=== PATIENT | male | born 1990 | race Caucasian/White ===

== ENCOUNTER → 2016-11-29 | Outpatient (CLI) | payer MEDICARE, OTHER ==
--- NOTE | 2016-11-29 14:03 | US ---
EXAMINATION TYPE: US liver DATE OF EXAM: 11/29/2016 COMPARISON: Complete abdominal ultrasound June 11, 2013 CLINICAL HISTORY: K75.81 Nonalcoholic steatophepatitis (BASHIR). EXAM MEASUREMENTS: Liver Length: 16.9 cm Gallbladder Wall: Surgically absent cm CBD: 0.5 cm Right Kidney: 10.7 x 4.9 x 4.9 cm Exam technically difficult due to body habitus. Pancreas: visualized portions wnl Liver: difficult to penetrate Gallbladder: Surgically absent CBD: wnl Right Kidney: No hydronephrosis or masses seen Visualized liver remains heterogeneously hyperechoic in appearance. Evaluation for focal masses is gupta boptimal due to the heterogeneity. IMPRESSION: No significant change from prior study, diffuse fatty infiltration of liver is once again felt present.
== END | disposition home or self-care (01) ==
LOC: RADUSWWP 12:13
PROVIDERS: ATTEND Internal Medicine
DX: K75.81 Nonalcoholic steatohepatitis (NASH) (principal)
CPT/HCPCS: 76705

== ENCOUNTER → 2016-11-29 | Outpatient (CLI) | payer MEDICARE, OTHER ==
[2016-11-29 14:01] LABS: Cholesterol 175 mg/dL (<200); HDL Cholesterol 31 mg/dL (40-60)
== END ==
LOC: LABWHC1 13:17
PROVIDERS: ATTEND Internal Medicine
DX: K75.81 Nonalcoholic steatohepatitis (NASH) (principal)
CPT/HCPCS: 36415; 80061

== ENCOUNTER 2018-07-16 15:37 | Emergency (ER) | payer MEDICARE, OTHER ==
[2018-07-16 15:43] VITALS: BP 107/81; PULSE 100; RESP 18; TEMP 98.3
[2018-07-16] MEDS ORDERED: SULFAMETHOX-TMP 800-160MG 1 EACH TAB PO STA (16:47)
[2018-07-16] MEDS ORDERED: IBUPROFEN 800 MG TAB PO STA (16:47)
[2018-07-16] MEDS ORDERED: SULFAMETH-TMP DS STARTER PACK 2 TAB BTL PO STA (16:47)
--- NOTE | 2018-07-16 16:48 | ED ---
Skin/Abscess/FB HPI - General Chief complaint: Skin/Abscess/Foreign Body Stated complaint: Finger infection Time Seen by Provider: 07/16/18 16:29 Source: patient, family, RN notes reviewed, old records reviewed Mode of arrival: ambulatory Limitations: no limitations - History of Present Illness Initial comments: This is a 27-year-old male the ER for evaluation. Patient has likely finger fracture. Patient symptoms again for about 5 days maybe a week. Patient is mildly poor strain history is also to be obtained from patient's parent. Patient has swelling and edema and purulent drainage of index finger. He's been doing compresses and soaks significant improvement. Patient coming in today consisted symptoms have just not resolved. No prior history of similar infection, patient does bite his fingers MD complaint: abscess/boil (Pre-abscess or boil) -: week(s) Tetanus Up to Date: yes Location: R hand Severity scale (1-10): 6 Quality: aching Consistency: constant Improves with: medication Worsens with: movement Context: none Associated symptoms: denies other symptoms - Related Data Home Medications Medication Instructions Recorded Confirmed Divalproex ER [Depakote ER] 500 mg PO BID 08/27/15 07/16/18 cloZAPine [Clozaril] 200 mg PO HS 08/27/15 07/16/18 Allopurinol [Zyloprim] 300 mg PO DAILY 07/16/18 07/16/18 Gabapentin [Neurontin] 100 mg PO TID 07/16/18 07/16/18 Pantoprazole Sodium [Protonix] 40 mg PO DAILY 07/16/18 07/16/18 Probenecid 500 mg PO BID 07/16/18 07/16/18 Previous Rx's Medication Instructions Recorded Naproxen [Naprosyn] 500 mg PO Q12HR PRN #30 tab 07/16/18 Sulfamethox-Tmp 800-160Mg [Bactrim 2 tab PO BID #40 tab 07/16/18 DS 800-160 mg] Allergies Allergy/AdvReac Type Severity Reaction Status Date / Time No Known Allergies Allergy Verified 07/16/18 17:29 Review of Systems ROS Statement: Those systems with pertinent positive or pertinent negative responses have been documented in the HPI. ROS Other: All systems not noted in ROS Statement are negative. Past Medical History Past Medical History: Asthma, GERD/Reflux, Seizure Disorder Additional Past Medical History / Comment(s): LAST SEIZURE AT 11YRS OLD, "PT IS SPECIAL NEEDS-MENTAL RETARDATION -MOM STATES HE IS LIKE A 5 YEAR OLD" UTI History of Any Multi-Drug Resistant Organisms: None Reported Past Surgical History: Cholecystectomy Additional Past Surgical History / Comment(s): INGROWN TOE NAIL SURGERY UNDER ANESTHESIA. Past Anesthesia/Blood Transfusion Reactions: Family History of Problems w/ Anesthesia Additional Past Anesthesia/Blood Transfusion Reaction / Comment(s): MOTHER =PONV Past Psychological History: Bipolar, Depression Smoking Status: Never smoker Past Alcohol Use History: None Reported Past Drug Use History: None Reported - Past Family History Father Family Medical History: Cancer Additional Family Medical History / Comment(s): PROSTATE CANCER General Exam - General Exam Comments Initial Comments: She does have cellulitis of right index finger. No drainable abscess identified currently Limitations: no limitations General appearance: alert, in no apparent distress Head exam: Present: atraumatic, normocephalic, normal inspection Eye exam: Present: normal appearance, PERRL, EOMI. Absent: scleral icterus, conjunctival injection, periorbital swelling ENT exam: Present: normal exam, mucous membranes moist Neck exam: Present: normal inspection. Absent: tenderness, meningismus, lymphadenopathy Respiratory exam: Present: normal lung sounds bilaterally. Absent: respiratory distress, wheezes, rales, rhonchi, stridor Cardiovascular Exam: Present: regular rate, normal rhythm, normal heart sounds. Absent: systolic murmur, diastolic murmur, rubs, gallop, clicks GI/Abdominal exam: Present: soft, normal bowel sounds. Absent: distended, tenderness, guarding, rebound, rigid Extremities exam: Present: normal inspection, full ROM, normal capillary refill. Absent: tenderness, pedal edema, joint swelling, calf tenderness Back exam: Present: normal inspection Neurological exam: Present: alert, oriented X3, CN II-XII intact Psychiatric exam: Present: normal affect, normal mood Skin exam: Present: warm, dry, intact, normal color. Absent: rash Course Vital Signs 07/16/18 15:41 Temperature 98.3 F Pulse Rate 100 Respiratory 18 Rate Blood Pressure 107/81 O2 Sat by Pulse 98 Oximetry Medical Decision Making - Medical Decision Making 27 male the ER for evaluation developing paronychia versus drained paronychia with cellulitis. Patient is doing warm compresses warm bath and wash his at home to continue those and patient put on antibiotics, patient will return if abscess formation developed Disposition Clinical Impression: Paronychia of right index finger, Cellulitis of finger of right hand Disposition: HOME SELF-CARE Condition: Good Instructions (If sedation given, give patient instructions): Paronychia (ED), Cellulitis (ED) Prescriptions: Sulfamethox-Tmp 800-160Mg [Bactrim DS 800-160 mg] 2 tab PO BID #40 tab Naproxen [Naprosyn] 500 mg PO Q12HR PRN #30 tab PRN Reason: Pain Is patient prescribed a controlled substance at d/c from ED?: No Referrals: Yayo Busch MD [Primary Care Provider] - 1-2 days
== END 2018-07-16 17:08 | disposition home or self-care (01) ==
LOC: EEVIPCON 15:37 → EC 15:37
DX: L03.011 Cellulitis of right finger (principal); K21.9 Gastro-esophageal reflux disease without esophagitis; G40.909 Epilepsy, unspecified, not intractable, without status epilepticus; F31.9 Bipolar disorder, unspecified; Z79.899 Other long term (current) drug therapy
CPT/HCPCS: 99283

== ENCOUNTER 2018-07-27 08:50 | Day surgery (SDC) | payer MEDICARE, OTHER ==
[2018-07-24 15:36] VITALS: BMI 39.9
[~2018-07-27 08:50] MED LIST: LACTATED RINGERS 1,000 ML IV SCH; LIDOCAINE 1% 20 ML VIAL (10MG/ML) FOR IV START INTRADERMA PRN
[2018-07-27 09:33] VITALS: RESP 16; TEMP 97.2
[2018-07-27] MEDS ORDERED: LIDOCAINE 1% INJ 10MG/ML (20 ML MDV) ONE (11:04)
[2018-07-27] MEDS ORDERED: PROPOFOL 10 MG/ML 20 ML VIAL IV ONE (11:04)
--- NOTE | 2018-07-27 11:15 | P.PCN ---
Date of Procedure: 07/27/18 Procedure(s) Performed: BRIEF HISTORY: Patient is a [id number], pleasant, white male, scheduled for an upper endoscopy as a part of evaluation of atypical chest pain for the last 2 months duration.. He denies any heartburn. No dysphagia or odynophagia. PROCEDURE PERFORMED: Esophagogastroduodenoscopy.With biopsy PREOPERATIVE DIAGNOSIS: Atypical chest pain of 2 months duration. IV sedation per anesthesia. PROCEDURE: After informed consent was obtained, the patient was brought into the endoscopy unit. IV sedation was administered by Anesthesia under continuous monitoring. Initially the Olympus GIF-140 video endoscope was inserted into the mouth. Esophagus intubated without any difficulty. It was gradually advanced into the stomach and duodenum and carefully examined. The bulb and the second part of the duodenum appeared normal. The scope at this time was withdrawn to the stomach, adequately insufflated with air, and upon careful examination, mucosa of the antrum, had mild gastritis and biopsies were done from this area. The body, cardia and the fundus appeared normal. The scope was then withdrawn into the esophagus. The GE junction was located at 43 cm from the incisors. The esophagus appeared normal. There were no erosions or ulcerations seen, multiple biopsies were done from the distal esophagus and the patient tolerated the procedure well. IMPRESSION: 1. Mild antral gastritis. 2. Normal-appearing esophagus with no evidence of esophagitis RECOMMENDATIONS: The findings of this examination were discussed with the patient [as well as his family. He was advised to follow with the biopsy results. He will give be given a prescription for Prilosec 20 mg daily for 8 weeks for possible GERD causing atypical chest pain.
[2018-07-27 11:39] VITALS: BP 125/69; PULSE 99
== END 2018-07-27 11:54 | disposition home or self-care (01) ==
LOC: ORWHC2ENDO 08:50
PROVIDERS: ATTEND Internal Medicine Gastroenterology
DX: K29.50 Unspecified chronic gastritis without bleeding (principal); K21.0 Gastro-esophageal reflux disease with esophagitis; J45.909 Unspecified asthma, uncomplicated; R56.9 Unspecified convulsions; Z79.899 Other long term (current) drug therapy; Z79.1 Long term (current) use of non-steroidal anti-inflammatories (NSAID)
CPT/HCPCS: 88305; 88312; 43239; J2001; J2704

== ENCOUNTER 2020-10-07 11:03 | Day surgery (SDC) | payer MEDICARE, OTHER ==
[2020-10-06 10:02] VITALS: BMI 42.5
[2020-10-07] MEDS: LACTATED RINGERS 1,000 ML IV SCH ×2 (12:35→12:40)
[2020-10-07 12:37] VITALS: TEMP 97.7
[2020-10-07 12:37] LABS: Glucose,Whole Blood 111 mg/dL (75-99)
[2020-10-07] MEDS ORDERED: LIDOCAINE 1% (10MG/ML) FOR IV START INTRADERMA ONE (12:37)
[2020-10-07] MEDS ORDERED: LIDOCAINE 1% INJ 10MG/ML (20 ML MDV) ONE (12:41)
[2020-10-07] MEDS ORDERED: PROPOFOL 10 MG/ML 20 ML VIAL IV ONE (12:41)
[2020-10-07] MEDS ORDERED: MIDAZOLAM 2 MG/2 ML VIAL ONE (12:41)
[2020-10-07] MEDS ORDERED: fentaNYL (PF) 50 MCG/ML 2 ML AMP ONE (12:41)
--- NOTE | 2020-10-07 13:05 | P.PCN ---
Date of Procedure: 10/07/20 Procedure(s) Performed: Brief history: Patient is a pleasant 29-year-old white male scheduled for an elective upper endoscopy as well as colonoscopy as a part of evaluation of GERD and chronic diarrhea for the last several months duration Procedure performed: Esophagogastroduodenoscopy with biopsy Colonoscopy with biopsy Preoperative diagnosis: GERD Chronic diarrhea Anesthesia: [facility] Procedure: After informed consent was obtained from the patient was brought into the endoscopy unit and IV sedation was administered by anesthesia under continuous monitoring. Initially upper endoscopy was done. The Olympus GF 160 video endoscope was inserted inserted into the mouth and esophagus intubated without any difficulty and was gradually advanced into the stomach and duodenum and carefully examined. The bulb and second part of the duodenum appeared normal. Biopsies were done from this area to rule out celiac disease. The scope was then withdrawn into the stomach adequately insufflated with air and upon careful examination the antrum had mild gastritis. Biopsies were done from the antrum. The body, cardia and fundus appeared normal. The scope was then withdrawn into the esophagus. The GE junction was located at 40 cm to the incisors. It appeared regular with no erythema erosions or ulcerations. Rest of the esophagus appeared normal. Patient tolerated the procedure well. At this time the patient continued to remain sedation. Initial digital rectal examination was normal. Olympus CF 160 video colonoscope was then inserted into the rectum and gradually advanced to the cecum without any difficulty. Careful examination was performed as the scope was gradually being withdrawn. The prep was excellent. The cecum, ascending colon, transverse colon, descending colon, sigmoid colon and rectum appeared normal. Random biopsies were done from ascending and descending colon to rule out metastatic/collagenous colitis. Retroflexion was performed in the rectum and no lesions were noted. Patient tolerated the procedure well. Impression: 1. Upper endoscopy revealed mild antral gastritis but no evidence of esophagitis or peptic 2. Colonoscopy revealed small internal hemorrhoids Recommendations: Findings of this examination were discussed with the patient as well as his family. He was advised to follow with the biopsy results. He'll be seen in office in one week.
[2020-10-07 13:14] VITALS: RESP 16
[2020-10-07 13:22] VITALS: BP 112/78; PULSE 119
== END 2020-10-07 13:53 | disposition home or self-care (01) ==
LOC: ORWHC2ENDO 11:03
PROVIDERS: ATTEND Internal Medicine Gastroenterology
DX: K29.50 Unspecified chronic gastritis without bleeding (principal); K52.9 Noninfective gastroenteritis and colitis, unspecified; K64.8 Other hemorrhoids; K21.9 Gastro-esophageal reflux disease without esophagitis; Z79.899 Other long term (current) drug therapy; J45.909 Unspecified asthma, uncomplicated; M10.9 Gout, unspecified; F41.9 Anxiety disorder, unspecified; E66.01 Morbid (severe) obesity due to excess calories; Z68.41 Body mass index [BMI] 40.0-44.9, adult
CPT/HCPCS: 88305; 45380; 43239; J2250; J2001; J3010; J2704

== ENCOUNTER 2022-09-05 21:59 | Inpatient (IN) | payer MEDICARE, OTHER ==
[2022-09-05] MEDS ORDERED: levETIRAcetam IV 500 MG/5 ML VIAL IVP STA (22:16)
--- NOTE | 2022-09-05 22:21 | ED ---
General Adult HPI - General Chief complaint: Seizure Stated complaint: siezure,possible overdose Time Seen by Provider: 09/05/22 22:01 Source: patient, EMS, RN notes reviewed Mode of arrival: EMS Limitations: altered mental status - History of Present Illness Initial comments: Patient is a pleasant 31-year-old male presenting to the emergency department by EMS. Patient has reported seizure activity. EMS did report witnessing to seizures. Patient does have remote history of seizures, none recently. Patient is a poor historian and is not able to drive much history. Sister is present and also a poor historian. Mobile crisis unit is present who is familiar with them and they were doing a check up on the patient in the found him altered. EMS states pupils were pinpoint inattentive to Narcan intranasally which may have improved alertness. Patient denies any drug use. Patient states occasional alcohol use, none today. Patient amiss to feeling fatigued and tired. Patient does admit to having some recent nausea vomiting and diarrhea. patient's mother is guardian and she is currently hospitalized in ICU. Patient has been living in the hotel with his sister. - Related Data Home Medications Medication Instructions Recorded Confirmed Divalproex ER [Depakote ER] 500 mg PO BID 08/27/15 10/07/20 cloZAPine [Clozaril] 200 mg PO HS 08/27/15 10/07/20 Gabapentin [Neurontin] 100 mg PO TID 07/16/18 10/07/20 Pantoprazole Sodium [Protonix] 40 mg PO DAILY 07/16/18 10/07/20 Probenecid 500 mg PO BID 07/16/18 10/07/20 allopurinoL [Zyloprim] 300 mg PO DAILY 07/16/18 10/07/20 Albuterol Inhaler [Ventolin Hfa 1 - 2 puff INHALATION RT-Q6H PRN 07/24/18 10/07/20 Inhaler] Ascorbic Acid [Vitamin C] 500 mg PO DAILY 10/06/20 10/07/20 Cholecalciferol [Vitamin D3 (25 50 mcg PO DAILY 10/06/20 10/07/20 Mcg = 1000 Iu)] Vitamin E 461 unit PO DAILY 10/06/20 10/07/20 Allergies Allergy/AdvReac Type Severity Reaction Status Date / Time dust AdvReac sneezing Uncoded 10/06/20 09:28 sunlight AdvReac sneezing Uncoded 10/06/20 09:28 Review of Systems ROS Statement: Those systems with pertinent positive or pertinent negative responses have been documented in the HPI. ROS Other: All systems not noted in ROS Statement are negative. Constitutional: Denies: fever Eyes: Denies: eye pain ENT: Denies: ear pain Respiratory: Denies: cough Cardiovascular: Denies: chest pain Endocrine: Reports: fatigue Gastrointestinal: Reports: nausea, vomiting, diarrhea Genitourinary: Denies: dysuria Musculoskeletal: Denies: back pain Skin: Denies: rash Neurological: Reports: as per HPI Past Medical History Past Medical History: Asthma, Chest Pain / Angina, GERD/Reflux, Seizure Disorder Additional Past Medical History / Comment(s): LAST SEIZURE AT 11YRS OLD, "PT IS SPECIAL NEEDS-MENTAL RETARDATION -MOM STATES HE IS LIKE A 5 YEAR OLD" , SPEAKS IN SENTENCES, SPEECH CLEAR, FORGETFUL.,", BORDERLINE DIABETIC" ., MOM STATES HE IS HAVING STOMACH AND CHEST PAINS, DIARRHEA WITH BLOOD IN STOOL. History of Any Multi-Drug Resistant Organisms: MRSA Date of last positivie culture/infection: 02/08/19 MDRO Source:: FINGER Past Surgical History: Cholecystectomy Additional Past Surgical History / Comment(s): INGROWN TOE NAIL SURGERY UNDER ANESTHESIA. Past Anesthesia/Blood Transfusion Reactions: Family History of Problems w/ Anesthesia, Postoperative Nausea & Vomiting (PONV) Additional Past Anesthesia/Blood Transfusion Reaction / Comment(s): MOTHER =PONV Past Psychological History: Bipolar, Depression Smoking Status: Never smoker Past Alcohol Use History: None Reported Past Drug Use History: None Reported - Past Family History Father Family Medical History: Cancer Additional Family Medical History / Comment(s): PROSTATE CANCER 01/08 General Exam Limitations: altered mental status General appearance: alert, in no apparent distress Head exam: Present: atraumatic Eye exam: Present: normal appearance, PERRL, EOMI ENT exam: Present: other (Tongue abrasions) Neck exam: Present: normal inspection. Absent: tenderness Respiratory exam: Present: normal lung sounds bilaterally Cardiovascular Exam: Present: regular rate, normal rhythm GI/Abdominal exam: Present: soft. Absent: tenderness Extremities exam: Present: normal inspection, full ROM. Absent: tenderness Neurological exam: Present: alert, altered. Absent: motor sensory deficit Expanded Neurological exam: Present: protecting the airway Patient oriented to: Present: person. Absent: place, time Cranial nerves: EOM's Intact: Normal Motor strength exam: RUE: 5, LUE: 5, RLE: 5, LLE: 5 Eye Response: (4) open spontaneously Motor Response: (6) obeys commands Verbal Response: (4) confused conversation Psychiatric exam: Present: normal affect, normal mood Skin exam: Present: normal color Course Vital Signs 09/05/22 09/05/22 09/05/22 22:06 22:15 23:46 Temperature 98.4 F 98.4 F Pulse Rate 112 H 99 95 Respiratory 20 20 18 Rate Blood Pressure 118/77 118/77 140/81 O2 Sat by Pulse 96 97 98 Oximetry EKG Findings - EKG Results: EKG: interpreted by MERRILL, sinus rhythm, normal axis, normal QRS, normal ST/T Medical Decision Making - Medical Decision Making Was pt. sent in by a medical professional or institution (, [facility], CVOR NURSE, urgent care, hospital, or long-term...) When possible be specific @ -Patient was brought in by mobile crisis unit. They're willing to help with patient. Their phone number is [phone] Did you speak to anyone other than the patient for history (EMS, parent, family, police, friend...)? What history was obtained from this source @ -Sister is present and helps provide history of seizure Did you review nursing and triage notes (agree or disagree)? Why? @ -I reviewed and agree with nursing and triage notes Were old charts reviewed (outside hosp., previous admission, EMS record, old EKG, old radiological studies, urgent care reports/EKG's, long-term records)? Report findings @ -No old charts were reviewed Differential Diagnosis (chest pain, altered mental status, abdominal pain women, abdominal pain men, vaginal bleeding, weakness, fever, dyspnea, syncope, headache, dizziness, GI bleed, back pain, seizure, CVA, palpatations, mental health)? @ -Differential Seizure: Recurrent seizure disorder, febrile seizure, alcohol withdrawal, stimulants, meningitis, encephalitis, intercranial hemorrhage, intracranial tumor, stroke, eclampsia, thyrotoxicosis, hypocalcemia, hyponatremia, hypernatremia, hypomagnesemia, psychogenic, this is not meant to be an all-inclusive list. EKG interpreted by (3pts min.). @ -As above X-rays interpreted by me (1pt min.). @ -None done CT interpreted by me (1pt min.). @ -Report reviewed U/S interpreted by me (1pt. min.). @ -None done What testing was considered but not performed or refused? (CT, X-rays, U/S, labs)? Why? @ -None What meds were considered but not given or refused? Why? @ -None Did you discuss the management of the patient with other professionals (professionals i.e. , PA, CVOR NURSE, lab, RT, psych nurse, social work therapist, hand woodworking sander, teacher, human resources officer, casework manager)? Give summary @ -Case was discussed with Dr. Camacho, who will admit covering hospital call Was smoking cessation discussed for >3mins.? @ -No Was critical care preformed (if so, how long)? @ -No Were there social determinants of health that impacted care today? How? (Homelessness, low income, unemployed, alcoholism, drug addiction, transportation, low edu. Level, literacy, decrease access to med. care, penitentiary, rehab)? @ -No Was there de-escalation of care discussed even if they declined (Discuss DNR or withdrawal of care, Hospice)? DNR status @ -No What co-morbidities impacted this encounter? (DM, HTN, Smoking, COPD, CAD, Cancer, CVA, ARF, Chemo, Hep., AIDS, mental health diagnosis, sleep apnea, morbid obesity)? @ -None Was patient admitted / discharged? Hospital course, mention meds given and r oute, prescriptions, significant lab abnormalities, going to OR and other pertinent info. @ -Patient reevaluated. Patient still has nausea. Patient and family updated on results and plan. Undiagnosed new problem with uncertain prognosis? @ -No Drug Therapy requiring intensive monitoring for toxicity (Heparin, Nitro, Insu esther, Cardizem)? @ -No Were any procedures done? @ -No Diagnosis/symptom? @ -Recurrent seizures, nausea and vomiting Acute, or Chronic, or Acute on Chronic? @ -Acute, acute Uncomplicated (without systemic symptoms) or Complicated (systemic symptoms)? @ -default Side effects of treatment? @ -No Exacerbation, Progression, or Severe Exacerbation? @ -No Poses a threat to life or bodily function? How? (Chest pain, USA, CT, pneumonia, PE, COPD, DKA, ARF, appy, cholecystitis, CVA, Diverticulitis, Homicidal, Suicidal, threat to staff... and all critical care pts) @ -No - Lab Data Result diagrams: 09/05/22 22:13 09/05/22 22:13 Lab Results 09/05/22 09/05/22 09/05/22 Range/Units 22:13 22:13 22:17 WBC 15.9 H (3.8-10.6) k/uL RBC 5.59 (4.30-5.90) m/uL Hgb 16.1 (13.0-17.5) gm/dL Hct 49.2 (39.0-53.0) % MCV 88.0 (80.0-100.0) fL MCH 28.8 (25.0-35.0) pg MCHC 32.7 (31.0-37.0) g/dL RDW 13.2 (11.5-15.5) % Plt Count 179 (150-450) k/uL MPV 13.9 Neutrophils % 77 % Lymphocytes % 17 % Monocytes % 4 % Eosinophils % 0 % Basophils % 0 % Neutrophils # 12.2 H (1.3-7.7) k/uL Lymphocytes # 2.8 (1.0-4.8) k/uL Monocytes # 0.7 (0-1.0) k/uL Eosinophils # 0.0 (0-0.7) k/uL Basophils # 0.0 (0-0.2) k/uL Manual Slide Review Performed Large Platelets Present Sodium 140 (137-145) mmol/L Potassium 3.7 (3.5-5.1) mmol/L Chloride 95 L (98-107) mmol/L Carbon Dioxide 8 L* (22-30) mmol/L Anion Gap 37 mmol/L BUN 17 (9-20) mg/dL Creatinine 1.55 H (0.66-1.25) mg/dL Est GFR (CKD-EPI)AfAm 68 (>60 ml/min/1.73 sqM) Est GFR (CKD-EPI)NonAf 59 (>60 ml/min/1.73 sqM) Glucose 104 H (74-99) mg/dL Calcium 10.0 (8.4-10.2) mg/dL Magnesium 2.8 H (1.6-2.3) mg/dL Total Bilirubin 1.0 (0.2-1.3) mg/dL AST 69 H (17-59) U/L ALT 77 H (4-49) U/L Alkaline Phosphatase 99 (38-126) U/L Total Protein 8.6 H (6.3-8.2) g/dL Albumin 5.6 H (3.5-5.0) g/dL Urine Color Yellow Urine Appearance Cloudy (Clear) Urine pH 6.0 (5.0-8.0) Ur Specific [place] 1.025 (1.001-1.035) Urine Protein 2+ H (Negative) Urine Glucose (UA) Negative (Negative) Urine Ketones 4+ H (Negative) Urine Blood Small H (Negative) Urine Nitrite Negative (Negative) Urine Bilirubin 1+ H (Negative) Urine Urobilinogen 2.0 (<2.0) mg/dL Ur Leukocyte Esterase Negative (Negative) Urine RBC 51 H (0-5) /hpf Urine WBC 2 (0-5) /hpf Ur Squamous Epith Cells 1 (0-4) /hpf Urine Bacteria Rare H (None) /hpf Hyaline Casts 15 H (0-2) /lpf Urine Mucus Few H (None) /hpf Urine Opiates Screen Not Detected (NotDetected) Ur Oxycodone Screen Not Detected (NotDetected) Urine Methadone Screen Not Detected (NotDetected) Ur Propoxyphene Screen Not Detected (NotDetected) Ur Barbiturates Screen Not Detected (NotDetected) Valproic Acid <10.0 ug/mL U Tricyclic Antidepress Not Detected (NotDetected) Ur Phencyclidine Scrn Not Detected (NotDetected) Ur Amphetamines Screen Not Detected (NotDetected) U Methamphetamines Scrn Not Detected (NotDetected) U Benzodiazepines Scrn Not Detected (NotDetected) Urine Cocaine Screen Not Detected (NotDetected) U Marijuana (THC) Screen Not Detected (NotDetected) Serum Alcohol <10 mg/dL Disposition Clinical Impression: Generalized seizure, Vomiting, Diarrhea Disposition: ADMITTED IP TO THIS [facility] Instructions (If sedation given, give patient instructions): Seizure/Epilepsy Discharge Instructions & Follow-Up Is patient prescribed a controlled substance at d/c from ED?: No Referrals: None,Stated [REFERRING] - 1-2 days Time of Disposition: 00:19
[2022-09-05 22:33] LABS: Basophils % (A) 0 %; Eosinophils % (A) 0 %; HCT 49.2 % (39.0-53.0); HGB 16.1 gm/dL (13.0-17.5); Lymphocytes # (A) 2.8 k/uL (1.0-4.8); Lymphocytes % (A) 17 %; MCH 28.8 pg (25.0-35.0); MCHC 32.7 g/dL (31.0-37.0); Mean Platelet Volume 13.9; Monocytes # (A) 0.7 k/uL (0-1.0); Monocytes % (A) 4 %; Neutrophils # (A) 12.2 k/uL (1.3-7.7); Neutrophils % (A) 77 %; Platelet Count 179 k/uL (150-450); RBC 5.59 m/uL (4.30-5.90); RDW 13.2 % (11.5-15.5); WBC 15.9 k/uL (3.8-10.6)
[2022-09-05 22:48] LABS: African American GFR (CKD) 68 (>60 ml/min/1.73 sqM); Albumin 5.6 g/dL (3.5-5.0); Alcohol <10 mg/dL; Alkaline Phosphatase 99 U/L (38-126); Anion Gap 37 mmol/L; Blood Urea Nitrogen 17 mg/dL (9-20); Chloride 95 mmol/L (98-107); Glucose 104 mg/dL (74-99); Magnesium 2.8 mg/dL (1.6-2.3); Non-African American GFR(CKD) 59 (>60 ml/min/1.73 sqM); Potassium 3.7 mmol/L (3.5-5.1); Sodium 140 mmol/L (137-145); Total Protein 8.6 g/dL (6.3-8.2)
[2022-09-05 22:53] LABS: AST 69 U/L (17-59); Valproic Acid (Depakene) <10.0 ug/mL
[2022-09-05 22:55] LABS: ALT 77 U/L (4-49)
[2022-09-05 23:03] LABS: Appearance,Urine Cloudy (Clear); Bacteria,Urine Rare /hpf; Bilirubin,Urine 1+ (Negative); Blood,Urine Small (Negative); Color,Urine Yellow; Glucose,Urine (UA) Negative (Negative); Hyaline Casts,Urine 15 /lpf (0-2); Ketones,Urine 4+ (Negative); Leukocyte Esterase,Urine Negative (Negative); Mucus,Urine Few /hpf; Nitrite,Urine Negative (Negative); Protein,Urine 2+ (Negative); RBC,Urine 51 /hpf (0-5); Specific Gravity,Urine 1.025 (1.001-1.035); Squamous Epithelial Cell,Urine 1 /hpf (0-4); WBC,Urine 2 /hpf (0-5)
[2022-09-05 23:05] LABS: Amphetamine Screen,Urine Not Detected (NotDetected); Barbiturate Screen,Urine Not Detected (NotDetected); Benzodiazepines Screen,Urine Not Detected (NotDetected); Cocaine Screen,Urine Not Detected (NotDetected); Methadone Screen, Urine Not Detected (NotDetected); Opiate Screen,Urine Not Detected (NotDetected); Oxycodone Screen, Urine Not Detected (NotDetected); Phencyclidine Screen,Urine Not Detected (NotDetected); Tricyclic Antidepressant,Urine Not Detected (NotDetected); Urn Cannabinoid Scrn Not Detected (NotDetected)
[2022-09-05 23:13] LABS: Carbon Dioxide 8 mmol/L (22-30)
--- NOTE | 2022-09-05 23:41 | CT ---
EXAMINATION TYPE: CT brain wo con DATE OF EXAM: 09/05/2022 COMPARISON: None. HISTORY: Seizure CT DLP: 1213 mGycm. Automated Exposure Control for Dose Reduction was Utilized. TECHNIQUE: CT scan of the head is performed without contrast. FINDINGS: There is no acute intracranial hemorrhage, mass effect, or midline shift identified. The ventricles and sulci are within normal limits in size. Lara-white matter differentiation is maintain ed. The globes are intact and the visualized sinuses are clear. IMPRESSION: No acute intracranial hemorrhage or midline shift is seen.
[2022-09-05] MEDS ORDERED: ONDANSETRON 4 MG/2 ML VIAL IVP STA (23:52)
[2022-09-06 00:02] LABS: Large Platelets Present
[2022-09-06] MEDS ORDERED: LORazepam 2 MG/ML INJ IV PRN (00:11)
[2022-09-06] MEDS ORDERED: FAMOTIDINE 20 MG/2 ML VIAL IV STA (00:15)
[2022-09-06] MEDS ORDERED: LOPERAMIDE 2 MG CAP PO ONE (00:20)
[2022-09-06] MEDS ORDERED: ONDANSETRON 4 MG/2 ML VIAL IVP PRN ×2 (00:20→08:42)
[2022-09-06] MEDS ORDERED: NALOXONE 0.4 MG/ML 1 ML VIAL IV PRN ×2 (00:20→08:42)
[2022-09-06] MEDS: SODIUM CHLORIDE 0.9% 1,000 ML IV SCH ×2 (00:52→16:49)
[2022-09-06] MEDS: THIAMINE 100 MG in SODIUM CHLORIDE 0.9% 50 ML IVPB SCH ×2 (01:16→15:50)
[2022-09-06 07:07] LABS: Basophils % (A) 0 %; Eosinophils % (A) 0 %; HGB 13.9 gm/dL (13.0-17.5); Lymphocytes # (A) 1.2 k/uL (1.0-4.8); Lymphocytes % (A) 9 %; MCH 28.5 pg (25.0-35.0); MCV 86.3 fL (80.0-100.0); Mean Platelet Volume 13.6; Monocytes # (A) 0.6 k/uL (0-1.0); Monocytes % (A) 5 %; Neutrophils # (A) 10.8 k/uL (1.3-7.7); Neutrophils % (A) 85 %; Platelet Count 126 k/uL (150-450); RBC 4.87 m/uL (4.30-5.90); RDW 13.3 % (11.5-15.5); WBC 12.8 k/uL (3.8-10.6)
[2022-09-06 07:26] LABS: Bilirubin, Delta 0.3 mg/dL (0.0-0.2); Bilirubin,Unconjugated 0.5 mg/dL (0.0-1.1); Calcium 8.8 mg/dL (8.4-10.2); Potassium 3.1 mmol/L (3.5-5.1); Total Bilirubin 0.8 mg/dL (0.2-1.3); Total Protein 6.2 g/dL (6.3-8.2)
[2022-09-06] MEDS ORDERED: Potassium Replacement Protocol 1 EACH MISC MISCELLANE PRN (07:39)
[2022-09-06] MEDS ORDERED: DIVALPROEX ER 500 MG TAB.ER.24H PO SCH ×2 (09:00)
[2022-09-06] MEDS ORDERED: HEPARIN SODIUM,PORCINE/PF 5,000 UNIT/0.5 ML SYRINGE SQ SCH (09:00)
[2022-09-06] MEDS ORDERED: FAMOTIDINE 20 MG/2 ML VIAL IV SCH ×2 (09:00)
[2022-09-06] MEDS ORDERED: GABAPENTIN 100 MG CAP PO SCH ×2 (09:00)
[2022-09-06] MEDS ORDERED: levETIRAcetam IV 500 MG/5 ML VIAL IVP SCH (10:00)
[2022-09-06] MEDS: HEPARIN SODIUM,PORCINE/PF 5,000 UNIT/0.5 ML SYRINGE SQ SCH ×2 (11:50→21:24)
[2022-09-06] MEDS: levETIRAcetam IV 500 MG/5 ML VIAL IVP SCH ×2 (11:51→21:23)
[2022-09-06 15:55] LABS: Glucose,Whole Blood 94 mg/dL (70-110)
--- NOTE | 2022-09-06 16:07 | P.CNNES ---
History of Present Illness Consult date: 09/06/22 Requesting physician: Ascencion E Gregory Reason for Consult: Seizure History of Present Illness: Patient is a 31-year-old male, who is mentally challenged, brought to the hospital by ambulance yesterday at 10 PM for possible seizure. Per nursing report, patient's mental capacity is around 5 years child. Patient not able to provide much history. As per EMS flow sheet, when they arrived, found patient on the ground, prone. Patient appeared postictal and was breathing. It was reported patient is very cognitively delayed and is staying at the [facility] with his twin sister. Their mother is the legal guardian, however she is currently on a ventilator in ICU, probably not able to survive. They currently have an emergency public guardian. [facility] worker states that they have been coming over multiple times a d ay to check on them. Today patient came out of the bathroom and collapsed having a seizure. Upon EMS arrival, patient was no longer seizing, however found to have pinpoint pupils. Patient then had another very brief seizure only lasting approximately 30 seconds. It has stopped prior to being able to draw of Versed. While being transferred in the ambulance, patient's jaw was clenched and his respiration remained slow. Pupils still pinpoint. Patient was given 2 mg nasal neck and with almost immediate improvement. Patient's vitals at the scene was blood pressure 153/107, pulse rate 144, respiration 10, saturation 94%, blood glucose 102. Patient's blood test shows WBC 15.9, which has improved to 12.8. Hemoglobin and platelets are normal. Sodium and potassium normal, but carbon dioxide was decreased 8 but has now improved to 23. Renal functions, calcium normal. AST 69, ALT 77, which has also come back to normal 45 and 48 respectively. Ammonia is <9, UA negative. Urine drug screen, Depakote level and blood alcohol level negative. Patient's home medications include allopurinol 300 mg, Protonix 40 mg twice a day and Clozaril 200 mg at bedtime. Patient denies any alcohol use, tobacco use. Denies diabetes. 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 He denies any history of seizure in the past. Review of Systems Patient practically says "yes" for all review of systems, therefore unreliable. Regarding rash, he states the rashes "between his balls". Constitutional: Denies chills, Denies fever Eyes: right decreased vision (Lasy right eye,), denies diplopia, denies loss of peripheral vision Ears: deny: decreased hearing, ear discharge Ears, nose, mouth and throat: Reports headache, Denies sore throat Cardiovascular: Denies chest pain, Denies shortness of breath Respiratory: Denies cough, Denies excessive sputum Gastrointestinal: Reports abdominal pain, Reports diarrhea, Reports nausea, Reports vomiting Musculoskeletal: Reports low back pain, Reports neck pain, Denies myalgias Integumentary: Denies pruritus, Denies rash Neurological: Reports numbness, Reports vertigo, Reports weakness, Reports visual changes Psychiatric: Reports anxiety, Reports depression Endocrine: Reports fatigue, Reports weight change Past Medical History Past Medical History: Asthma, Chest Pain / Angina, GERD/Reflux, Seizure Disorder Additional Past Medical History / Comment(s): LAST SEIZURE AT 11YRS OLD, "PT IS SPECIAL NEEDS-MENTAL RETARDATION -MOM STATES HE IS LIKE A 5 YEAR OLD" , SPEAKS IN SENTENCES, SPEECH CLEAR, FORGETFUL.,", BORDERLINE DIABETIC" ., MOM STATES HE IS HAVING STOMACH AND CHEST PAINS, DIARRHEA WITH BLOOD IN STOOL. History of Any Multi-Drug Resistant Organisms: MRSA Date of last positivie culture/infection: 02/08/19 MDRO Source:: FINGER Past Surgical History: Cholecystectomy Additional Past Surgical History / Comment(s): INGROWN TOE NAIL SURGERY UNDER ANESTHESIA. Past Anesthesia/Blood Transfusion Reactions: Family History of Problems w/ Anesthesia, Postoperative Nausea & Vomiting (PONV) Additional Past Anesthesia/Blood Transfusion Reaction / Comment(s): MOTHER =PONV Past Psychological History: Bipolar, Depression Smoking Status: Never smoker Past Alcohol Use History: None Reported Past Drug Use History: None Reported - Past Family History Father Family Medical History: Cancer Additional Family Medical History / Comment(s): PROSTATE CANCER 01/08 Medications and Allergies Home Medications Medication Instructions Recorded Confirmed Type cloZAPine [Clozaril] 200 mg PO HS 08/27/15 09/06/22 History Pantoprazole Sodium [Protonix] 40 mg PO BID 07/16/18 09/06/22 History allopurinoL [Zyloprim] 300 mg PO DAILY 07/16/18 09/06/22 History Allergies Allergy/AdvReac Type Severity Reaction Status Date / Time dust AdvReac sneezing Uncoded 09/06/22 07:50 sunlight AdvReac sneezing Uncoded 09/06/22 07:50 Physical Examination - Vital Signs Vital Signs: Vital Signs Temp Pulse Resp BP Pulse Ox 09/06/22 08:00 97.8 F 79 18 109/70 96 09/06/22 05:00 80 16 134/68 94 L 09/05/22 23:46 95 18 140/81 98 09/05/22 22:15 98.4 F 99 20 118/77 97 09/05/22 22:06 98.4 F 112 H 20 118/77 96 Intake and Output 09/05/22 09/06/22 09/06/22 22:59 06:59 14:59 Output Total 350 Balance -350 Output: Post Void Residual 350 Other: Weight 99.79 kg Patient is a young male, who is laying comfortably in the bed in no distress. Patient has a very flat affect. Patient is alert awake. He knows it is the month of August, but could not tell the year. He states that he [facility]. He knows his date of . He was able to name objects like pen, glasses, and states that he lives in a motel as his house is "bad". He claims that his mother has "blood infection". Patient watching a documentary on Krish Templeton on the TV, states that Krish Templeton because his doctors give him too many drugs. He could not tell name of the current [place] president. Speech is slightly slurred, often difficult to understand. However often can understand what he is saying. Attention, concentration and fund of knowledge is quite limited. On cranial nerve examination, pupils are equal, round and reacting to light, visual worley are full on confrontation, with no neglect on double simultaneous stimulation. Patient has slight right exotropia from lazy eye. Otherwise the extraocular muscles are intact with no nystagmus. Face is symmetric, tongue protrudes to the midline. Palatal elevation and sensation normal, hearing and shoulder shrug normal, facial sensation normal. Patient has evidence of tongue bite heidy. On muscle strength testing, patient did not cooperate very well with the testing. His deltoids are 4, biceps 5, triceps 5, repair service clerk 4+. In the lower limbs he did not cooperate much. Hip flexion was no more than 3+, and ankle dorsiflexion 4+4- bilaterally. Uncertain if it falls related to decreased effort from comprehension versus underlying weakness. Patient says that he does not use any assistive device at home. Deep tendon reflexes are symmetric biceps trace, brachioradialis trace, knees 3, ankles 1 and plantars are upgoing bilaterally. Sensory to touch is equal. Cerebellar function showed no ataxia for [id number] testing. Tone and bulk of muscles normal. Gait deferred.. On general examination, there is no carotid bruit or murmur, S1-S2 audible. Chest is clear on consultation. Abdomen is soft nontender. No organomegaly, bowel sounds present. Peripheral pulses are present. No edema. Results - Laboratory Findings CBC and BMP: 09/06/22 06:00 09/06/22 06:00 Abnormal Lab Findings: Abnormal Labs 09/05/22 09/05/22 09/05/22 22:13 22:13 22:17 WBC 15.9 H Plt Count Neutrophils # 12.2 H Potassium Chloride 95 L Carbon Dioxide 8 L* Creatinine 1.55 H Glucose 104 H Magnesium 2.8 H Delta Bilirubin AST 69 H ALT 77 H Total Protein 8.6 H Albumin 5.6 H Urine Protein 2+ H Urine Ketones 4+ H Urine Blood Small H Urine Bilirubin 1+ H Urine RBC 51 H Urine Bacteria Rare H Hyaline Casts 15 H Urine Mucus Few H 09/06/22 09/06/22 06:00 06:00 WBC 12.8 H Plt Count 126 L Neutrophils # 10.8 H Potassium 3.1 L Chloride Carbon Dioxide Creatinine 1.44 H Glucose Magnesium Delta Bilirubin 0.3 H AST ALT Total Protein 6.2 L Albumin Urine Protein Urine Ketones Urine Blood Urine Bilirubin Urine RBC Urine Bacteria Hyaline Casts Urine Mucus Assessment and Plan Assessment: * New onset seizure, unclear cause. * Mentally challenged * Transient elevated hepatic enzymes, now resolved. Plan: * EEG was performed, which showed no epileptiform abnormality. It was mainly a sleep study. As awake pattern was not seen, therefore underlying encephalopathy cannot be ruled out. * Patient has been started on Keppra. * We will check the patient's aunt, about his previous history of seizure, if any. Patient denies having any history of seizures. * Neurology will follow. Thank you for the consult. Addendum: I spoke to patient's nurse in the ER, as well as on the floor taking care of her in #[phone], no one has information of patient's aunt Jazmine phone number. I called patient's public guardian number, and they did not have any listing of aunt Jazmine. They gave me number of aunjeff Marrufo phone number [phone]. I tried to call that number, and no one picking up the phone.
--- NOTE | 2022-09-06 16:09 | P.HPIM ---
History of Present Illness H&P Date: 09/06/22 Chief Complaint: Witnessed seizure by EMS Patient is a 31-year-old male with a past medical history of seizure, GERD, asthma, mental delay. Patient is a poor historian. I attempted to call the legal guardian number thousand the chart as well as the public guardian services is also in the chart however both numbers went to voicemail. History was mainly obtained from ED note. Patient is well-known to the mobile crisis unit. They were doing a check up on the patient and found him altered so called EMS. When EMS arrived they witnessed him having a seizure. Patient currently is living with his sister in a motel. Sister is also a poor historian. Per chart his mom is his guardian and she is currently hospitalized in the ICU. Patient is denying being on any seizure medications. The patient and his sister don't know when his last seizure was. In the ED patient's WBC was 15.9 and bicarb was 8 and creatinine 1.55. Repeat labs done in the morning showed improvement in his bicarb at 23. Patient was loaded with Keppra and then started on Keppra 1000 mg twice a day. No further seizure activities noted. Patient was admitted to the medicine service today to be evaluated by neurology. Review of symptoms: 10 ROS reviewed and are negative except as noted in HPI Physical exam General: [Alert and oriented, well nourished, no acute distress]. Eye: [PERRL, EOMI, normal conjunctiva]. HENT: [Normocephalic, clear tympanic membranes, normal hearing, moist oral mucosa, no scleral icterus, no sinus tenderness]. Neck: [Supple, non-tender, no carotid bruits, no JVD, no lymphadenopathy]. Lungs: [Clear to auscultation and percussion, non-labored respiration]. Heart: [Normal rate, regular rhythm, no murmur, gallop or edema]. Abdomen: [Soft, non-tender, non-distended, normal bowel sounds, no masses]. Musculoskeletal: [Normal range of motion and strength, no tenderness or swelling]. Neurologic: [Awake, alert, and oriented X2, CN II-XII intact]. Psychiatric: [Patient has a flat affect, slow to respond to questions, mental delay]. Assessment Recurrent seizure Metabolic acidosis suspect due to lactic acidosis from seizure (unfortunately no lactic acid was done on admission) Acute kidney injury Hypokalemia Mental delay Plan Resume Keppra 1000 mg twice a day Neurology assessment every 4 hours EEG Patient's bicarb has normalized Resume IV fluids Trend BMP Resume home meds clozapine 20 mg at bedtime, allopurinol 3 mg daily and Protonix 40 mg twice a day Patient placed on potassium replacement PT consult manager adult consult for safe placement. Patient's mother currently in the ICU and patient currently living with sister who is also a poor historian. DVT prophylaxis: Subcu heparin Anticipated discharge: Tomorrow Anticipated discharge place: As per correctional case records supervisor Past Medical History Past Medical History: Asthma, Chest Pain / Angina, GERD/Reflux, Seizure Disorder Additional Past Medical History / Comment(s): LAST SEIZURE AT 11YRS OLD, "PT IS SPECIAL NEEDS-MENTAL RETARDATION -MOM STATES HE IS LIKE A 5 YEAR OLD" , SPEAKS IN SENTENCES, SPEECH CLEAR, FORGETFUL.,", BORDERLINE DIABETIC" ., MOM STATES HE IS HAVING STOMACH AND CHEST PAINS, DIARRHEA WITH BLOOD IN STOOL. History of Any Multi-Drug Resistant Organisms: MRSA Date of last positivie culture/infection: 02/08/19 MDRO Source:: FINGER Past Surgical History: Cholecystectomy Additional Past Surgical History / Comment(s): INGROWN TOE NAIL SURGERY UNDER ANESTHESIA. Past Anesthesia/Blood Transfusion Reactions: Family History of Problems w/ Anesthesia, Postoperative Nausea & Vomiting (PONV) Additional Past Anesthesia/Blood Transfusion Reaction / Comment(s): MOTHER =PONV Past Psychological History: Bipolar, Depression Smoking Status: Never smoker Past Alcohol Use History: None Reported Past Drug Use History: None Reported - Past Family History Father Family Medical History: Cancer Additional Family Medical History / Comment(s): PROSTATE CANCER 01/08 Medications and Allergies Home Medications Medication Instructions Recorded Confirmed Type cloZAPine [Clozaril] 200 mg PO HS 08/27/15 09/06/22 History Pantoprazole Sodium [Protonix] 40 mg PO BID 07/16/18 09/06/22 History allopurinoL [Zyloprim] 300 mg PO DAILY 07/16/18 09/06/22 History Allergies Allergy/AdvReac Type Severity Reaction Status Date / Time dust AdvReac sneezing Uncoded 09/06/22 07:50 sunlight AdvReac sneezing Uncoded 09/06/22 07:50 Physical Exam Osteopathic Statement: *. No significant issues noted on an osteopathic structural exam other than those noted in the History and Physical/Consult. Vitals: Vital Signs Temp Pulse Resp BP Pulse Ox 09/06/22 14:17 98 F 75 16 115/78 98 09/06/22 12:05 98 F 75 20 125/74 98 09/06/22 08:00 97.8 F 79 18 109/70 96 09/06/22 05:00 80 16 134/68 94 L 09/05/22 23:46 95 18 140/81 98 09/05/22 22:15 98.4 F 99 20 118/77 97 09/05/22 22:06 98.4 F 112 H 20 118/77 96 Intake and Output 09/06/22 09/06/22 09/06/22 06:59 14:59 22:59 Output Total 350 Balance -350 Output: Post Void Residual 350 Results CBC & Chem 7: 09/06/22 06:00 09/06/22 06:00 Labs: Abnormal Lab Results - Last 24 Hours (Table) 09/05/22 09/05/22 09/05/22 Range/Units 22:13 22:13 22:17 WBC 15.9 H (3.8-10.6) k/uL Plt Count (150-450) k/uL Neutrophils # 12.2 H (1.3-7.7) k/uL Potassium (3.5-5.1) mmol/L Chloride 95 L (98-107) mmol/L Carbon Dioxide 8 L* (22-30) mmol/L Creatinine 1.55 H (0.66-1.25) mg/dL Glucose 104 H (74-99) mg/dL Magnesium 2.8 H (1.6-2.3) mg/dL Delta Bilirubin (0.0-0.2) mg/dL AST 69 H (17-59) U/L ALT 77 H (4-49) U/L Total Protein 8.6 H (6.3-8.2) g/dL Albumin 5.6 H (3.5-5.0) g/dL Procalcitonin (0.02-0.09) ng/mL Urine Protein 2+ H (Negative) Urine Ketones 4+ H (Negative) Urine Blood Small H (Negative) Urine Bilirubin 1+ H (Negative) Urine RBC 51 H (0-5) /hpf Urine Bacteria Rare H (None) /hpf Hyaline Casts 15 H (0-2) /lpf Urine Mucus Few H (None) /hpf 09/06/22 09/06/22 09/06/22 Range/Units 06:00 06:00 06:00 WBC 12.8 H (3.8-10.6) k/uL Plt Count 126 L (150-450) k/uL Neutrophils # 10.8 H (1.3-7.7) k/uL Potassium 3.1 L (3.5-5.1) mmol/L Chloride (98-107) mmol/L Carbon Dioxide (22-30) mmol/L Creatinine 1.44 H (0.66-1.25) mg/dL Glucose (74-99) mg/dL Magnesium (1.6-2.3) mg/dL Delta Bilirubin 0.3 H (0.0-0.2) mg/dL AST (17-59) U/L ALT (4-49) U/L Total Protein 6.2 L (6.3-8.2) g/dL Albumin (3.5-5.0) g/dL Procalcitonin 0.10 H (0.02-0.09) ng/mL Urine Protein (Negative) Urine Ketones (Negative) Urine Blood (Negative) Urine Bilirubin (Negative) Urine RBC (0-5) /hpf Urine Bacteria (None) /hpf Hyaline Casts (0-2) /lpf Urine Mucus (None) /hpf
[2022-09-06] MEDS: PANTOPRAZOLE 40 MG TABLET PO SCH (18:01)
--- NOTE | 2022-09-06 20:42 | EEG ---
ELECTROENCEPHALOGRAM REPORT PREAMBLE: This is a 31-year-old male with history of cerebral palsy, came with seizures. This study is performed to evaluate for epileptiform activity. EEG FINDINGS: This is a 21-channel digital EEG recorded with video component, utilizing 10/20 international system with referential and bipolar montages. The recording starts and continues with the patient being asleep, with presence of diffuse delta and theta slowing, with lot of sleep spindles and vertex waves throughout the study. Well- formed, awake pattern not seen in the entire study. No definitive focal or generalized epileptiform activity was seen. Photic stimulation was not performed. EKG channel showed no obvious arrhythmia. IMPRESSION: This is a predominantly unremarkable sleep EEG. Awake pattern not seen in the entire study, therefore underlying encephalopathy cannot be ruled out. No obvious epileptiform activity was seen in this study. MMODL / IJN: [id number] /
[2022-09-06] MEDS: cloZAPine 100 MG TAB PO SCH (21:47)
[2022-09-07] MEDS: THIAMINE 100 MG in SODIUM CHLORIDE 0.9% 50 ML IVPB SCH ×2 (00:09→12:43)
[2022-09-07 05:37] LABS: Glucose,Whole Blood 78 mg/dL (70-110)
[2022-09-07] MEDS: SODIUM CHLORIDE 0.9% 1,000 ML IV SCH ×2 (06:43→14:04)
[2022-09-07 07:07] LABS: Glucose,Whole Blood 72 mg/dL (70-110)
[2022-09-07 07:54] LABS: Basophils % (A) 0 %; Eosinophils % (A) 0 %; HGB 13.5 gm/dL (13.0-17.5); Lymphocytes # (A) 1.4 k/uL (1.0-4.8); Lymphocytes % (A) 20 %; MCH 28.4 pg (25.0-35.0); MCHC 33.7 g/dL (31.0-37.0); MCV 84.5 fL (80.0-100.0); Mean Platelet Volume 13.4; Monocytes # (A) 0.4 k/uL (0-1.0); Monocytes % (A) 6 %; Neutrophils # (A) 4.9 k/uL (1.3-7.7); Neutrophils % (A) 72 %; Platelet Count 104 k/uL (150-450); RBC 4.73 m/uL (4.30-5.90); RDW 13.6 % (11.5-15.5); WBC 6.8 k/uL (3.8-10.6)
[2022-09-07 08:23] LABS: Calcium 8.7 mg/dL (8.4-10.2); Magnesium 2.3 mg/dL (1.6-2.3); Potassium 3.1 mmol/L (3.5-5.1)
[2022-09-07] MEDS: HEPARIN SODIUM,PORCINE/PF 5,000 UNIT/0.5 ML SYRINGE SQ SCH ×2 (08:26→21:01)
[2022-09-07] MEDS ORDERED: allopurinoL 300 MG TAB PO SCH (09:00)
[2022-09-07] MEDS: levETIRAcetam IV 500 MG/5 ML VIAL IVP SCH (09:35)
[2022-09-07] MEDS: POTASSIUM CHLORIDE 10 MEQ in WATER FOR INJECTION 1 100ML.BAG IVPB SCH ×5 (10:34→20:59)
[2022-09-07] MEDS: PANTOPRAZOLE 40 MG TABLET PO SCH ×2 (11:05→17:53)
--- NOTE | 2022-09-07 11:29 | P.PN ---
Subjective Progress Note Date: 09/07/22 Hospital course Patient is a 31-year-old male with a past medical history of seizure, GERD, asthma, mental delay. Patient is a poor historian. I attempted to call the legal guardian number thousand the chart as well as the public guardian services is also in the chart however both numbers went to voicemail. History was mainly obtained from ED note. Patient is well-known to the mobile crisis unit. They were doing a check up on the patient and found him altered so called EMS. When EMS arrived they witnessed him having a seizure. Patient currently is living with his sister in a motel. Sister is also a poor historian. Per chart his mom is his guardian and she is currently hospitalized in the ICU. Patient is denying being on any seizure medications. The patient and his sister don't know when his last seizure was. Patient was started on Keppra. EEG showed no epileptiform activity. Patient also has acute kidney injury. Despite patient receiving fluids his renal function is worsening. Nephrology has been consulted. Patient this morning was difficult to arouse. However he did wake up. Patient would then fall back asleep. He did tell me a couple words. Patient appeared somnolent. He did not appear to be postictal. Per nurse no seizure activity noticed. Patient is a poor historian due to mental today. No family were at bedside. 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 Patient is mildly tachycardic in the 100s. Remainder of the vital signs are stable Data reviewed: Creatinine increased from 1.44-1.73. Potassium is 3.1. Recurrent seizure Metabolic acidosis suspect due to lactic acidosis from seizure (unfortunately no lactic acid was done on admission). Resolved Acute toxic encephalopathy. Patient does not appear postictal. He is more somnolent and lethargic. I believe this is due to starting Keppra Acute kidney injury. Worsening Hypokalemia Mental delay Plan Resume Keppra 1000 mg twice a day -> patient appears lethargic. We'll discuss with neurology about changing medication or decreasing the dose Neurology assessment every 4 hours EEG showed no epileptiform activity Patient's creatinine is increasing so we'll increase his fluids to 100 mL/h of normal saline. We'll check renal ultrasound. We'll check bladder scan. Consult nephrology Trend BMP Resume home meds clozapine 20 mg at bedtime Hold allopurinol due to worsening renal function Protonix 40 mg twice a day Patient placed on potassium replacement protocol PT consult corporate recycling manager consult for safe placement. Patient's mother currently in the ICU and patient currently living with sister who is also a poor historian. DVT prophylaxis: Subcu heparin Anticipated discharge: Tomorrow Anticipated discharge place: As per manager of case management Objective - Vital Signs Vital signs: Vital Signs Temp 97.6 F 09/07/22 07:31 Pulse 106 H 09/07/22 07:31 Resp 16 09/07/22 07:31 BP 115/75 09/07/22 07:31 Pulse Ox 97 09/07/22 09:06 FiO2 Intake & Output 09/06/22 09/07/22 09/07/22 18:59 06:59 18:59 Intake Total 740 Output Total 900 Balance -160 Weight 99.79 kg Intake: Oral 740 Output: Urine 900 Other: Voiding Method Toilet # Voids 1 - Labs CBC & Chem 7: 09/07/22 06:46 09/07/22 06:46 Labs: Abnormal Lab Results - Last 24 Hours (Table) 09/06/22 09/07/22 09/07/22 Range/Units 06:00 06:46 06:46 Plt Count 104 L (150-450) k/uL Potassium 3.1 L (3.5-5.1) mmol/L Carbon Dioxide 21 L (22-30) mmol/L BUN 22 H (9-20) mg/dL Creatinine 1.73 H (0.66-1.25) mg/dL Procalcitonin 0.10 H (0.02-0.09) ng/mL
--- NOTE | 2022-09-07 12:54 | P.NPCON ---
History of Present Illness - Reason for Consult acute renal failure - History of Present Illness Reason for consultation: Acute kidney injury History of present illness: Patient is a 37 positive for acute kidney injury. Patient is currently quite somnolent and is not a reliable historian. There was a visit check done for patient and was found to be altered and subsequently EMS was called about the patient to the hospital. There was a witnessed seizure by the EMS. Patient does have history of seizures. Creatinine was 1.57 admission and is 1.73 today. Unknown baseline function. Patient was noted to be severely acidotic on admission subsequently improved. He is currently receiving IV fluids. Patient's urine drug screen was completely negative. No documentation of any suicide attempt. Patient is noted to have urinary retention. He is already required to straight catheterizations as over 500 mL of urine obtained. Potassium is low and is being replaced. Blood pressure stable. Afebrile. I don't see any nonsteroidals and is on medications. No history of diabetes. Vital signs are stable. General: Lethargic. HEENT: Head exam is unremarkable. LUNGS: No audible rhonchi or wheezes. HEART: Rate and Rhythm are regular. ABDOMEN: Nontender. EXTREMITITES: No edema. Past Medical History Past Medical History: Asthma, Chest Pain / Angina, GERD/Reflux, Seizure Disorder Additional Past Medical History / Comment(s): LAST SEIZURE AT 11YRS OLD, "PT IS SPECIAL NEEDS-MENTAL RETARDATION -MOM STATES HE IS LIKE A 5 YEAR OLD" , SPEAKS IN SENTENCES, SPEECH CLEAR, FORGETFUL.,", BORDERLINE DIABETIC" ., MOM STATES HE IS HAVING STOMACH AND CHEST PAINS, DIARRHEA WITH BLOOD IN STOOL. History of Any Multi-Drug Resistant Organisms: MRSA Date of last positivie culture/infection: 02/08/19 MDRO Source:: FINGER Past Surgical History: Cholecystectomy Additional Past Surgical History / Comment(s): INGROWN TOE NAIL SURGERY UNDER ANESTHESIA. Past Anesthesia/Blood Transfusion Reactions: Family History of Problems w/ Anesthesia, Postoperative Nausea & Vomiting (PONV) Additional Past Anesthesia/Blood Transfusion Reaction / Comment(s): MOTHER =PONV Past Psychological History: Bipolar, Depression Smoking Status: Never smoker Past Alcohol Use History: None Reported Past Drug Use History: None Reported - Past Family History Father Family Medical History: Cancer Additional Family Medical History / Comment(s): PROSTATE CANCER 09/17 Medications and Allergies Home Medications Medication Instructions Recorded Confirmed Type cloZAPine [Clozaril] 200 mg PO HS 08/27/15 09/06/22 History Pantoprazole Sodium [Protonix] 40 mg PO BID 07/16/18 09/06/22 History allopurinoL [Zyloprim] 300 mg PO DAILY 07/16/18 09/06/22 History Allergies Allergy/AdvReac Type Severity Reaction Status Date / Time dust AdvReac sneezing Uncoded 09/06/22 07:50 sunlight AdvReac sneezing Uncoded 09/06/22 07:50 Physical Exam Vitals: Vital Signs Temp Pulse Pulse Resp BP BP Pulse Ox 09/07/22 11:06 131 H 16 132/87 97 09/07/22 09:06 97 09/07/22 07:31 97.6 F 106 H 16 115/75 97 09/07/22 04:00 97.8 F 103 H 16 118/68 96 09/07/22 00:00 98.1 F 102 H 18 97/68 95 09/06/22 20:00 97.9 F 85 18 101/64 97 09/06/22 18:42 98.2 F 81 18 101/69 95 09/06/22 18:02 97 F L 72 16 118/70 96 09/06/22 16:48 98 F 71 16 118/67 95 09/06/22 14:17 98 F 75 16 115/78 98 Intake and Output 09/06/22 09/07/22 09/07/22 22:59 06:59 14:59 Intake Total 740 Output Total 900 1000 Balance -160 -1000 Intake: Oral 740 Output: Urine 900 1000 Straight 500 Other: Voiding Method Toilet Toilet # Voids 1 Weight 99.79 kg Results - Lab Results Most recent lab results Calcium 8.7 mg/dL (8.4-10.2) 09/07/22 06:46 Magnesium 2.3 mg/dL (1.6-2.3) 09/07/22 06:46 09/07/22 06:46 09/07/22 06:46 Assessment and Plan Plan: Assessment: 1. Acute kidney injury secondary to ATN. Creatinine 1.5 on admission and is 1.7 today. Unknown baseline renal function. 2. New onset witnessed seizure. On Keppra. Neurology following. 3. Hypokalemia from poor intake. Being replaced. 4. Urinary retention requiring straight catheterizations. 5. Developmental delay. 3. Metabolic acidosis secondary to acute kidney injury and seizure. Improved. Plan: Maintain IV fluids. Check CPK level. Check volatile drug screen. Potassium being replaced. Follow-up renal ultrasound. Continue to monitor renal function and urine output. Urology also consulted for retention. Add Flomax. Thank you for the consultation. I will continue to follow the patient with you during his hospital stay.
--- NOTE | 2022-09-07 13:13 | US ---
EXAMINATION TYPE: US kidneys/renal and bladder DATE OF EXAM: 09/07/2022 COMPARISON: US liver CLINICAL INDICATION: Male, 31 years old with history of JENNIFER; JENNIFER EXAM MEASUREMENTS: Right Kidney: 11.8 x 5.4 x 5.4 cm Left Kidney: 12.3 x 5.9 x 6.0 cm Right Kidney: No evidence of hydro Left Kidney: No evidence of hydro Bladder: Not fully distended to evaluate Bilateral Jets seen: No Incidental finding enlarged spleenthe hepatic echotexture is increased. There is no evidence for hydronephrosis at this point in time. No nephrolithiasis is seen. No black s are identified. The urinary bladder is anechoic. IMPRESSION: 1. No evidence for obstructive uropathy. 2. Hepatic steatosis.
--- NOTE | 2022-09-07 13:17 | P.GSCN ---
History of Present Illness Consult date: 09/07/22 History of present illness: I was asked to see this 31-year-old, mentally handicapped male for difficulty voiding. The patient is too lethargic to answer the questions appropriately at the bedside plus his mental status does not allow this. The history is taken from the chart and speaking to the nurse. The patient has a very difficult social situation in that his mother is in the NICU and another hospital. He lives with his sister in hotel. Apparently he had seizures brought to the hospital. He was catheterized for 900 mL last night and 500 mL this afternoon. His creatinine is 1.4 and repeat at 1.7. His urine showed red blood cells on admission however I do not know whether this was a catheterized her voided specimen. There is no evidence of infection. Ultrasound did not show any evidence of hydronephrosis. Review of Systems ROS unobtainable: due to mental status Past Medical History Past Medical History: Asthma, Chest Pain / Angina, GERD/Reflux, Seizure Disorder Additional Past Medical History / Comment(s): LAST SEIZURE AT 11YRS OLD, "PT IS SPECIAL NEEDS-MENTAL RETARDATION -MOM STATES HE IS LIKE A 5 YEAR OLD" , SPEAKS IN SENTENCES, SPEECH CLEAR, FORGETFUL.,", BORDERLINE DIABETIC" ., MOM STATES HE IS HAVING STOMACH AND CHEST PAINS, DIARRHEA WITH BLOOD IN STOOL. History of Any Multi-Drug Resistant Organisms: MRSA Year Discovered:: 02/08/19 MDRO Source:: FINGER Past Surgical History: Cholecystectomy Additional Past Surgical History / Comment(s): INGROWN TOE NAIL SURGERY UNDER ANESTHESIA. Past Anesthesia/Blood Transfusion Reactions: Family History of Problems w/ Anesthesia, Postoperative Nausea & Vomiting (PONV) Additional Past Anesthesia/Blood Transfusion Reaction / Comm: MOTHER =PONV Past Psychological History: Bipolar, Depression Smoking Status: Never smoker Past Alcohol Use History: None Reported Past Drug Use History: None Reported - Past Family History Father Family Medical History: Cancer Additional Family Medical History / Comment(s): PROSTATE CANCER 01/08 Medications and Allergies Home Medications Medication Instructions Recorded Confirmed Type cloZAPine [Clozaril] 200 mg PO HS 08/27/15 09/06/22 History Pantoprazole Sodium [Protonix] 40 mg PO BID 07/16/18 09/06/22 History allopurinoL [Zyloprim] 300 mg PO DAILY 07/16/18 09/06/22 History Allergies Allergy/AdvReac Type Severity Reaction Status Date / Time dust AdvReac sneezing Uncoded 09/06/22 07:50 sunlight AdvReac sneezing Uncoded 09/06/22 07:50 Surgical - Exam Vital Signs Temp Pulse Resp BP Pulse Ox 98.4 F 112 H 20 118/77 96 09/05/22 22:06 09/05/22 22:06 09/05/22 22:06 09/05/22 22:06 09/05/22 22:06 - General Lethargic, sleeping well developed, well nourished - ENT no hearing loss - Respiratory normal respiratory effort - Cardiovascular Rhythm: regular - Abdomen Abdomen: soft, non tender - Genitourinary normal penis with no external lesions, testicles present, testicles non-tender, other Results - Labs 09/07/22 06:46 09/07/22 06:46 Abnormal Lab Results - Last 24 Hours (Table) 09/06/22 09/07/22 09/07/22 Range/Units 06:00 06:46 06:46 Plt Count 104 L (150-450) k/uL Potassium 3.1 L (3.5-5.1) mmol/L Carbon Dioxide 21 L (22-30) mmol/L BUN 22 H (9-20) mg/dL Creatinine 1.73 H (0.66-1.25) mg/dL Procalcitonin 0.10 H (0.02-0.09) ng/mL Diabetes panel 09/07/22 Range/Units 06:46 Sodium 142 (137-145) mmol/L Potassium 3.1 L (3.5-5.1) mmol/L Chloride 105 (98-107) mmol/L Carbon Dioxide 21 L (22-30) mmol/L BUN 22 H (9-20) mg/dL Creatinine 1.73 H (0.66-1.25) mg/dL Glucose 75 (74-99) mg/dL Calcium 8.7 (8.4-10.2) mg/dL Calcium panel 09/07/22 Range/Units 06:46 Calcium 8.7 (8.4-10.2) mg/dL Pituitary panel 09/07/22 Range/Units 06:46 Sodium 142 (137-145) mmol/L Potassium 3.1 L (3.5-5.1) mmol/L Chloride 105 (98-107) mmol/L Carbon Dioxide 21 L (22-30) mmol/L BUN 22 H (9-20) mg/dL Creatinine 1.73 H (0.66-1.25) mg/dL Glucose 75 (74-99) mg/dL Calcium 8.7 (8.4-10.2) mg/dL Adrenal panel 09/07/22 Range/Units 06:46 Sodium 142 (137-145) mmol/L Potassium 3.1 L (3.5-5.1) mmol/L Chloride 105 (98-107) mmol/L Carbon Dioxide 21 L (22-30) mmol/L BUN 22 H (9-20) mg/dL Creatinine 1.73 H (0.66-1.25) mg/dL Glucose 75 (74-99) mg/dL Calcium 8.7 (8.4-10.2) mg/dL - Imaging US - kidney/bladder: report reviewed, image reviewed Assessment and Plan Assessment: Impression: Seizures indeterminate cause. Mental incapacitation. Incomplete bladder emptying probably related to seizures, perhaps chronic excessive water- drinking is seen in mentally handicapped individual's Recommendations: The patient has been ordered to have a catheter placed by Dr. Riddle he also has started him on Flomax a. From a urologic standpoint there really is nothing we'll do at this point in time. The patient's mental status improves and he is getting close to discharge the catheter can be removed for a voiding trial.
[2022-09-07] MEDS: TAMSULOSIN 0.4 MG CAP.ER.24H PO SCH (13:32)
--- NOTE | 2022-09-07 16:41 | P.PN ---
Subjective Progress Note Date: 09/07/22 Patient was seen for a follow-up. Patient is very somnolent, likely due to side effect of Keppra. Telemetry monitoring showing sinus rhythm, sinus tachycardia sometimes going up to 140. Objective - Vital Signs Vital signs: Vital Signs Temp 97.6 F 09/07/22 07:31 Pulse 131 H 09/07/22 11:06 Resp 16 09/07/22 11:06 BP 132/87 09/07/22 11:06 Pulse Ox 97 09/07/22 11:06 FiO2 Intake & Output 09/06/22 09/07/22 09/07/22 18:59 06:59 18:59 Intake Total 740 Output Total 900 1000 Balance -160 -1000 Weight 99.79 kg Intake: Oral 740 Output: Urine 900 1000 Straight 500 Other: Voiding Method Toilet # Voids 1 - Exam Patient asleep. Somnolent from medication. - Labs CBC & Chem 7: 09/07/22 06:46 09/07/22 06:46 Labs: Abnormal Lab Results - Last 24 Hours (Table) 09/06/22 09/07/22 09/07/22 Range/Units 06:00 06:46 06:46 Plt Count 104 L (150-450) k/uL Potassium 3.1 L (3.5-5.1) mmol/L Carbon Dioxide 21 L (22-30) mmol/L BUN 22 H (9-20) mg/dL Creatinine 1.73 H (0.66-1.25) mg/dL Creatine Kinase (55-170) U/L Procalcitonin 0.10 H (0.02-0.09) ng/mL 09/07/22 Range/Units 13:10 Plt Count (150-450) k/uL Potassium (3.5-5.1) mmol/L Carbon Dioxide (22-30) mmol/L BUN (9-20) mg/dL Creatinine (0.66-1.25) mg/dL Creatine Kinase 348 H (55-170) U/L Procalcitonin (0.02-0.09) ng/mL Assessment and Plan Assessment: * New onset seizure, unclear cause. * Mentally challenged * Transient elevated hepatic enzymes, now resolved. Plan: * EEG was performed, which showed no epileptiform abnormality. It was mainly a sleep study. As awake pattern was not seen, therefore underlying encephalopathy cannot be ruled out. * Patient is currently on Keppra 1000 mg twice a day. He is very somnolent. We will skip tonight dose and decrease dose to 500 mg twice a day from tomorrow. * I spoke to patient's aunt Annemarie Ornelas on the phone. She states that she does not know any previous history of seizure in the patient. She believes that he was sick, with diarrhea and vomiting for a past few days. He was possibly dehydrated. This may have resulted in the seizure. Patient's white cells were elevated when he arrived, carbon dioxide was very low 8, renal functions were slightly off and his liver functions were slightly off yesterday, which is improved today. Suspect seizure may be related to some viral syndrome. He probably was slightly dehydrated. We will discontinue Keppra at this time, perform 2.5 hours EEG in the morning. We will resume seizure medication, only if EEG shows any epileptiform activity. Patient's aunt agreed with this approach.
[2022-09-07 17:13] VITALS: RESP 18
[2022-09-07] MEDS: cloZAPine 100 MG TAB PO SCH (21:02)
[2022-09-08] MEDS: POTASSIUM CHLORIDE 10 MEQ in WATER FOR INJECTION 1 100ML.BAG IVPB SCH ×3 (00:29→04:42)
[2022-09-08] MEDS: THIAMINE 100 MG in SODIUM CHLORIDE 0.9% 50 ML IVPB SCH ×2 (02:54→13:11)
[2022-09-08] MEDS: SODIUM CHLORIDE 0.9% 1,000 ML IV SCH ×2 (02:54→09:02)
[2022-09-08] MEDS: PANTOPRAZOLE 40 MG TABLET PO SCH (06:26)
[2022-09-08 07:08] LABS: Ethanol Negative (Negative); Isopropanol Negative (Negative)
[2022-09-08] MEDS ORDERED: levETIRAcetam IV 500 MG/5 ML VIAL IVP SCH (09:00)
[2022-09-08] MEDS: HEPARIN SODIUM,PORCINE/PF 5,000 UNIT/0.5 ML SYRINGE SQ SCH (09:02)
[2022-09-08] MEDS: TAMSULOSIN 0.4 MG CAP.ER.24H PO SCH (09:02)
[2022-09-08 09:51] LABS: Calcium 8.5 mg/dL (8.4-10.2); Magnesium 1.9 mg/dL (1.6-2.3); Potassium 3.3 mmol/L (3.5-5.1)
[2022-09-08 11:38] VITALS: BP 121/82; TEMP 97.9
[2022-09-08] MEDS ORDERED: POTASSIUM CHLORIDE ER 20 MEQ TAB.ER PO STA (12:00)
[2022-09-08] MEDS ORDERED: POTASSIUM BICARBONATE/CIT AC 20 MEQ TABLET.EFF PO ONE (12:00)
[2022-09-08] MEDS ORDERED: MAG HYDROX/AL HYDROX/SIMETH 30 ML, HYOSCYAMINE ELIXIR 10 ML PO ONE ×2 (12:37)
[2022-09-08 13:29] VITALS: PULSE 92
--- NOTE | 2022-09-08 14:56 | P.DS ---
Providers Date of admission: 09/06/22 00:20 Expected date of discharge: 09/08/22 Attending physician: Mariel Alejandro DO Consults: 09/06/22 00:14 Consult Physician Urgent Consulting Provider: Naldo Cuba Consult Reason/Comments: seizure Do you want consulting provider notified?: Yes, Notify in am 09/07/22 11:17 Consult Physician Routine Consulting Provider: Kalina Ruiz Consult Reason/Comments: JENNIFER Do you want consulting provider notified?: Yes 09/07/22 12:28 Consult Physician Routine Consulting Provider: Jeremi Woods Consult Reason/Comments: Urinary retention Do you want consulting provider notified?: Yes Primary care physician: Lashay Ibrahim MD Hospital Course: Discharge Diagnosis: Recurrent seizure Metabolic acidosis likely due to acidosis from [place] or Acute metabolic encephalopathy Acute kidney injury Hypokalemia Intellectual disability Hospital Course: Patient is a 31-year-old male with known cognitive impairment, past seizure disorder with last seizure at age 11, GERD, and asthma who presented to the ER at the direction of the mobile crisis unit for altered mentation. When EMS arrived they noted a witnessed seizure. On arrival to the ER he was tachycardic with a pulse of 112, the remainder of his vital signs were within normal limits. Laboratory analysis was remarkable for white blood cell count of 15.9, chloride 95, carbon dioxide 8, anion gap 37, BUN 17, creatinine 1.55, magnesium 2.8, AST 69, ALT 77. Urinalysis was consistent with urinary tract infection but was consistent with possible starvation ketosis. CT head showed no acute intracranial hemorrhage or midline shift. Urine drug screen was negative, serum alcohol negative, valproic acid level less than 10. He was admitted. Nephrology and neurology were consulted. He was started on Keppra. He was found to have urinary retention and a Price catheter was placed and he was started on Flomax. He had a volatile acid screen completed which was negative. He underwent a short EEG weren't awake pattern was not seen in the entire study and therefore encephalopathy could not be ruled out but not had no obvious epileptiform activity. He underwent an ultrasound renal/bladder which showed no evidence of obstructive uropathy but did show some hepatic steatosis with an incidental finding of an enlarged spleen. He had no recurrent signs of seizure despite Her being stopped. He underwent a 2-1/2 hour EEG which per verbal report was negative. He was eating and drinking. He did have some upset sto mach but was still eating and drinking well. His renal function improved and his acidosis resolved. He was determined stable for discharge. Follow-up: Patient will maintain Price catheter on discharge due to urinary retention, he will follow with Dr. Singh in the office for a voiding trial. He needs to continue on Flomax. He will continue with Protonix and pepcid twice daily. He should follow-up with his PCP in 1-2 weeks. Patient seen and examined at bedside. He is feeling much better than on admission. He denies any nausea or abdominal pain. He then states his stomach is "upset". But he denies any nausea and wants to eat. He has no tenderness to palpation. Vital signs reviewed and stable. General: nontoxic, no distress, appears at stated age Derm: warm, dry Head: atraumatic, normocephalic, symmetric Eyes: EOMI, no lid lag, anicteric sclera Mouth: no lip lesion, mucus membranes moist Cardiovascular: S1S2 reg, no murmur, positive posterior tibial pulse bilateral, Lungs: CTA bilateral, no rhonchi, no rales , no accessory muscle use Abdominal: soft, nontender to palpation, no guarding, no appreciable organomegaly Ext: no gross muscle atrophy, no edema, no contractures Neuro: CN II-XI grossly intact, no focal neuro deficits Psych: Alert, oriented to situation A total of 32 minutes of time were spent preparing this complex discharge summary. Patient was discharged on 09/08/22. This dictation was prepared using [employer] voice recognition software. Though every attempt is made to correct errors during during dictation some may still exist. Plan - Discharge Summary Discharge Rx Participant: No New Discharge Prescriptions: No Action cloZAPine [Clozaril] 200 mg PO HS Pantoprazole Sodium [Protonix] 40 mg PO BID allopurinoL [Zyloprim] 300 mg PO DAILY Discharge Medication List cloZAPine [Clozaril] 200 mg PO HS 08/27/15 [History] Pantoprazole Sodium [Protonix] 40 mg PO BID 07/16/18 [History] allopurinoL [Zyloprim] 300 mg PO DAILY 07/16/18 [History] Follow up Appointment(s)/Referral(s): [facility], [NON-STAFF] - None,Stated [REFERRING] - 1-2 days Patient Instructions/Handouts: Seizure/Epilepsy Discharge Instructions & Follow-Up Activity/Diet/Wound Care/Special Instructions: Patient will d/c to [facility] - Please call them when patient is d/c. [facility] insurance case manager, Lynda can transport to [facility] Maintain Price catheter at this time. Please continue to administer Flomax daily. We'll follow up with Dr. Singh in the outpatient setting for a voiding trial. Recommend 8 week trial of Protonix for symptoms, if unresolved could consider upper endoscopy with Dr. Watson
--- NOTE | 2022-09-09 00:59 | EEG ---
ELECTROENCEPHALOGRAM REPORT ELECTROENCEPHALOGRAM (EEG) REPORT: TECHNIQUE: This is a report from a prolonged 2.5 hour inpatient digital EEG performed using the 10/20 international electrode placement system. HISTORY: The patient presented to the ER after altered mental status, encephalopathy. The patient has baseline cognitive impairment. The patient was started on Keppra a few days ago. Other history includes asthma, chest pain, possible seizures. CURRENT MEDICATIONS: 1. Klonopin. 2. Zofran. 3. Protonix. 4. Flomax. 5. Keppra. FINDINGS: Recording start time: 09/08/2022 at 9:49 a.m. Recording end time: 09/08/2022 at 12:39 p.m. EVENTS: During this segment of the patient's video EEG recording, no clinical or electrographic seizures were recorded. Please note that a mild excess of beta frequency activity was noted. This is not epileptiform in nature and may in part be due to medication effect. The primary finding of this recording was stage 1 and/or stage 2 sleep. For a few moments, the patient would arouse briefly and background frequencies were seen as will be described below and then essentially immediately go back into sleep. ACTIVATION: Hyperventilation: Not performed. Photic stimulation: Not performed. Sleep: Stages I and II sleep noted. ABNORMALITIES: 1. Occasional frontally predominant triphasic waves were seen. 2. Not particularly of abnormality was mentioned. The patient was eventually asleep with rapid fluctuation from very brief wakefulness to sleep. Background frequencies when they were seen were in the unsustained 7 to 8 hertz range. IMPRESSION: Limited study, predominantly sleep EEG with rapid fluctuation between very brief alertness and going back to sleep. The triphasic waves mentioned above are not epileptiform in nature. It can be seen in the setting of a metabolic encephalopathy. Clinical correlation is recommended. These findings were called to the consulting neurologist at 1:35 p.m. on September 08, 2022. MMODL / IJN: [id number] /
--- NOTE | 2022-09-09 08:39 | P.PN ---
Subjective Progress Note Date: 09/08/22 Patient was seen for a follow-up. Patient is much more alert and awake. He complains of "upset stomach". This will be addressed by PCP. Discussed with Dr. Castanon He feels that he is not better. Patient continues to have flat affect. No seizure-like spells noted. Objective - Vital Signs Vital signs: Vital Signs Temp 97.9 F 09/08/22 08:00 Pulse 108 H 09/08/22 08:00 Resp 18 09/08/22 08:00 BP 121/82 09/08/22 08:00 Pulse Ox 96 09/08/22 08:00 FiO2 Intake & Output 09/07/22 09/08/22 09/08/22 18:59 06:59 18:59 Intake Total 1736 736 Output Total 1540 900 Balance 196 -164 Intake: Oral 1736 736 Output: Urine 1540 900 Straight 500 Other: Voiding Method Indwelling Catheter Indwelling Catheter Indwelling Catheter - Exam Patient is alert and awake, stable as compared to the initial admission examination. Essentially unchanged. - Labs CBC & Chem 7: 09/07/22 06:46 09/08/22 08:48 Labs: Abnormal Lab Results - Last 24 Hours (Table) 09/07/22 09/07/22 09/08/22 Range/Units 13:10 17:49 08:48 Potassium 3.3 L 3.3 L (3.5-5.1) mmol/L BUN 21 H (9-20) mg/dL Creatinine 1.43 H (0.66-1.25) mg/dL Glucose 129 H (74-99) mg/dL Creatine Kinase 348 H (55-170) U/L Assessment and Plan Assessment: * New onset seizure, unclear cause. Possibly provoked due to dehydration, naus ea vomiting, gastroenteritis. * Mentally challenged * Transient elevated hepatic enzymes, now resolved. Plan: * Patient underwent a prolonged EEG today, which was limited study, predominantly sleep EEG with a rapid fluctuation between very brief alertness and going back to sleep. The triphasic waves mentioned above are not epileptiform in nature. It can be seen in setting of metabolic encephalopathy. Clinical correlation is recommended. * Routine EEG was performed, which showed no epileptiform abnormality. It was mainly a sleep study. As awake pattern was not seen, therefore underlying encephalopathy cannot be ruled out. * No indication for antiepileptic medication, as his seizure probably provoked due to the reasons mentioned below. * I spoke to patient's aunt Annemarie Ornelas on the phone. She states that she does not know any previous history of seizure in the patient. She believes that he was sick, with diarrhea and vomiting for a past few days. He was possibly dehydrated. This may have resulted in the seizure. Patient's white cells were elevated when he arrived, carbon dioxide was very low 8, renal functions were slightly off and his liver functions were slightly off yesterday, which is improved today. Suspect seizure may be related to some viral syndrome. He probably was slightly dehydrated. We will discontinue Keppra at this time, perform 2.5 hours EEG in the morning. We will resume seizure medication, only if EEG shows any epileptiform activity. Patient's aunt agreed with this approach. * Neurologically clear for discharge. Other management as per IM.
== END 2022-09-08 16:27 | disposition home or self-care (01) | DRG 100 ==
LOC: EEVIPCON 21:59 → EC 21:59 → 3SCARD 09-06 00:20
PROVIDERS: ADMIT Internal Medicine; ATTEND Internal Medicine
DX: G40.909 Epilepsy, unspecified, not intractable, without status epilepticus (principal); G93.41 Metabolic encephalopathy; N17.0 Acute kidney failure with tubular necrosis; E87.20 Acidosis, unspecified; E88.89 Other specified metabolic disorders; K76.0 Fatty (change of) liver, not elsewhere classified; J45.909 Unspecified asthma, uncomplicated; F79 Unspecified intellectual disabilities; E87.6 Hypokalemia; K21.9 Gastro-esophageal reflux disease without esophagitis; R16.1 Splenomegaly, not elsewhere classified; R73.03 Prediabetes; K30 Functional dyspepsia; E86.0 Dehydration; K52.9 Noninfective gastroenteritis and colitis, unspecified; R00.0 Tachycardia, unspecified; B34.9 Viral infection, unspecified; R62.50 Unspecified lack of expected normal physiological development in childhood; R33.9 Retention of urine, unspecified; R41.89 Other symptoms and signs involving cognitive functions and awareness; H53.001 Unspecified amblyopia, right eye; Z91.048 Other nonmedicinal substance allergy status; Z79.899 Other long term (current) drug therapy; Z79.891 Long term (current) use of opiate analgesic; Z28.310 Unvaccinated for COVID-19
CPT/HCPCS: 36415; 70450; 76770; 80048; 80053; 80076; 80164; 80306; 80320; 81001; 82140; 82550; 83735; 84132; 84145; 84600; 85025; 93005; 94760; 95700; 95713; 95819; 96361; 96365; 96366; 96375; 99285

== ENCOUNTER → 2024-01-11 | Outpatient (CLI) | payer MEDICARE, OTHER ==
--- NOTE | 2024-01-11 10:22 | US ---
EXAMINATION TYPE: US abdomen complete DATE OF EXAM: 01/11/2024 COMPARISON: NONE CLINICAL INDICATION: Male, 33 years old with history of R10.13 EPIGASTRIC PAIN; Epigastric pain TECHNIQUE: Multiple sonographic images of the abdomen are obtained. 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 The intrahepatic portion of the IVC and proximal abdominal aorta are within normal limits. Gallbladder surgically absent. Common bile duct is unremarkable. The visualized por tions of the pancreas are homogenous. The spleen is unremarkable. Kidneys are symmetric and free of hydronephrosis. No renal lesions are seen. IMPRESSION: 1. No evidence for acute process. 2. Hepatic steatosis. [facility], , 01/11/2024 10:20 AM
== END | disposition home or self-care (01) ==
LOC: RADUSWWP 09:09
PROVIDERS: ATTEND Family Medicine
DX: R10.13 Epigastric pain
CPT/HCPCS: 76700